=== PATIENT | female | born 1995 | race Caucasian/White ===

== ENCOUNTER 2020-11-21 13:36 | Outpatient (CLI) | payer BC ==
[2020-11-22 03:55] LABS: SARS-CoV-2 PCR by NAA Not Detected (NotDetected)
== END 2020-11-21 13:37 | disposition home or self-care (01) ==
LOC: CSHLAB 13:36
PROVIDERS: ATTEND Obstetrics & Gynecology
DX: Z20.822 Contact with and (suspected) exposure to COVID-19 (principal)
CPT/HCPCS: 87635; U0003; U0005

== ENCOUNTER 2020-11-26 06:00 | Inpatient (IN) | payer BC, OTHER ==
[2020-11-26] MEDS ORDERED: Ondansetron PF 4 MG/2 ML Vial IVP PRN (06:08)
[2020-11-26] MEDS ORDERED: hydrALAZINE 20 MG/ML VIAL SLOW IVP PRN ×2 (06:08→12:37)
[2020-11-26] MEDS ORDERED: Lidocaine 1% (PF) 30 ML VIAL SC PRN (06:08)
[2020-11-26] MEDS ORDERED: Misoprostol 200 MCG TAB PR PRN (06:08)
[2020-11-26] MEDS ORDERED: Promethazine HCl 25 MG/ML VIAL IM PRN (06:08)
[2020-11-26] MEDS ORDERED: Carboprost 250 MCG/ML AMP IM PRN (06:08)
[2020-11-26] MEDS ORDERED: Ibuprofen 800 MG TAB PO PRN (06:08)
[2020-11-26] MEDS ORDERED: Butorphanol Tartrate 1 MG/ML VIAL SLOW IVP PRN (06:08)
[2020-11-26] MEDS ORDERED: HYDROcodone/Acetaminophen 5/325 mg Tablet PO PRN (06:08)
[2020-11-26] MEDS ORDERED: Diphenoxylate HCl/Atropine Tablet PO PRN (06:08)
[2020-11-26] MEDS ORDERED: Acetaminophen 500 MG TAB PO PRN (06:08)
[2020-11-26 06:30] VITALS: BMI 25.0
[2020-11-26] MEDS ORDERED: NS w/ Oxytocin 30 units 500 ML IVPB PRN (06:39)
[2020-11-26] MEDS: Lactated Ringer's 1,000 ML IV SCH (07:00)
[2020-11-26] MEDS: NS w/ Oxytocin 30 units 500 ML IVPB SCH ×2 (07:04→14:32)
[2020-11-26 07:28] LABS: Hemoglobin 10.4 g/dL (12.0-15.5); Mean Corpuscular HGB CONC 32.3 g/dL (32.0-36.0); Mean Corpuscular Hemoglobin 26.5 pg (27.0-33.0); Mean Corpuscular Volume 81.9 fl (81.6-98.3); Mean Platelet Volume 11.4 fl (7.4-10.4); Platelet Count 218 10x3/uL (150-450); RBC Distribution Width 14.4 % (11.5-14.5); Red Blood Cell (RBC) Count 3.93 10x6/uL (3.90-5.03); White Blood Cell (WBC) Count 7.7 10x3/uL (3.5-10.5)
[2020-11-26] MEDS ORDERED: Fentanyl 4 mcg/Bup 0.1% Cadd 100 ML ONE (07:56)
[2020-11-26 08:14] LABS: Hep B Surf Ag Non-Reactive S/CO (NonReactive); Syphilis Antibody Nonreactive (Nonreactive); Syphilis Antibody Index 0.03 S/CO (<1.00 Non-Reactive)
[2020-11-26 08:18] LABS: HBSAg Index 0.19 S/CO (0-0.99)
[2020-11-26] MEDS: ePHEDrine Sulfate 50 MG/10 ML VIAL ONE ×2 (08:42→08:56)
[2020-11-26] MEDS ORDERED: PHENYLEPHRINE-NS 100 MCG/ML 10 ML SYRINGE ONE (08:57)
[2020-11-26] MEDS ORDERED: Dexmedetomidine 200 MCG/2 ML VIAL ONE (10:32)
[2020-11-26] MEDS ORDERED: Milk Of Magnesia 30 ML UDCUP PO PRN (12:37)
[2020-11-26] MEDS ORDERED: Preparation H Ointment 28 GM TUBE PR PRN (12:37)
[2020-11-26] MEDS ORDERED: Benzocaine-Menthol 82.5 ML CAN TOP PRN (12:37)
[2020-11-26] MEDS ORDERED: Adacel (T-DAP) 0.5 ML SYRINGE IM ONE (12:37)
[2020-11-26] MEDS ORDERED: Bisacodyl 10 MG SUPP PR PRN (12:37)
[2020-11-26] MEDS ORDERED: NS / Oxytocin 40 units/1000ml 1,000 ML IV SCH (12:45)
[2020-11-26] MEDS ORDERED: Phytonadione Neonatal 1 MG/0.5 ML AMP ONE (13:42)
[2020-11-26] MEDS ORDERED: Erythromycin Base 0.5% Oint 1 GM TUBE ONE (13:42)
[2020-11-26] MEDS: Ibuprofen 800 MG TAB PO SCH ×2 (15:26→21:02)
[2020-11-26] MEDS: Ferrous Sulfate 325 MG TAB PO SCH (15:27)
[2020-11-26] MEDS: traMADol HCl 50 MG TAB PO PRN ×2 (17:39→22:55)
[2020-11-26] MEDS: Docusate Calcium (SURFAK) 240 MG CAP PO SCH (21:02)
[2020-11-27] MEDS: traMADol HCl 50 MG TAB PO PRN ×3 (04:12→19:34)
[2020-11-27] MEDS: Ibuprofen 800 MG TAB PO SCH ×4 (06:35→22:11)
[2020-11-27] MEDS: Ferrous Sulfate 325 MG TAB PO SCH ×2 (08:29→13:59)
[2020-11-27] MEDS: Prenatal Vitamin 1 TAB PO SCH (08:33)
[2020-11-27] MEDS: Docusate Calcium (SURFAK) 240 MG CAP PO SCH ×2 (08:33→22:10)
[2020-11-27] MEDS: Lactated Ringer's 1,000 ML IV SCH (21:03)
[2020-11-28] MEDS: traMADol HCl 50 MG TAB PO PRN ×2 (02:04→09:17)
[2020-11-28] MEDS: Ibuprofen 800 MG TAB PO SCH ×2 (05:15→13:59)
[2020-11-28 08:11] VITALS: BP 103/61; TEMP 98.1
[2020-11-28] MEDS: Ferrous Sulfate 325 MG TAB PO SCH (08:20)
[2020-11-28] MEDS: Prenatal Vitamin 1 TAB PO SCH (08:53)
[2020-11-28] MEDS: Docusate Calcium (SURFAK) 240 MG CAP PO SCH (08:53)
== END 2020-11-28 17:30 | disposition home or self-care (01) | DRG 807 ==
LOC: CSHLD 06:05 → CSHPP 15:21
PROVIDERS: ADMIT Obstetrics & Gynecology; ATTEND Obstetrics & Gynecology
PROC: 10E0XZZ Delivery of Products of Conception, External Approach (ICD-10-PCS; principal; 2020-11-27)
PROC: 0KQM0ZZ Repair Perineum Muscle, Open Approach (ICD-10-PCS; 2020-11-27)
PROC: 10907ZC Drainage of Amniotic Fluid, Therapeutic from Products of Conception, Via Natural or Artificial Opening (ICD-10-PCS; 2020-11-27)
DX: O70.1 Second degree perineal laceration during delivery (principal); Z37.0 Single live birth; Z20.822 Contact with and (suspected) exposure to COVID-19; Z3A.39 39 weeks gestation of pregnancy
CPT/HCPCS: 36415; 51702; 85027; 86780; 86850; 86900; 86901; 87340; J2405; J2590

== ENCOUNTER 2022-09-15 22:41 | Inpatient (IN) | payer BC, MEDICAID, OTHER ==
[~2022-09-15 22:41] MED LIST: Bupivacaine HCl 0.5%/Epinephrine 1:200,000/PF 30 ml Vial ONE
[2022-09-15 23:09] VITALS: BMI 25.6
[2022-09-15] MEDS ORDERED: Lidocaine 1% (PF) 30 ML VIAL SC PRN (23:33)
[2022-09-15] MEDS ORDERED: Ondansetron PF 4 MG/2 ML Vial IVP PRN (23:33)
[2022-09-15] MEDS ORDERED: hydrALAZINE 20 MG/ML VIAL SLOW IVP PRN (23:33)
[2022-09-15] MEDS ORDERED: Acetaminophen 500 MG TAB PO PRN (23:33)
[2022-09-15] MEDS ORDERED: Misoprostol 200 MCG TAB PR PRN (23:33)
[2022-09-15] MEDS ORDERED: Methylergonovine 0.2 MG/ML VIAL IM PRN (23:33)
[2022-09-15] MEDS ORDERED: Carboprost 250 MCG/ML AMP IM PRN (23:33)
[2022-09-15] MEDS ORDERED: Diphenoxylate HCl/Atropine Tablet PO PRN (23:33)
[2022-09-15] MEDS ORDERED: Butorphanol Tartrate 1 MG/ML VIAL SLOW IVP PRN (23:33)
[2022-09-15] MEDS ORDERED: Promethazine HCl 25 MG/ML VIAL IM PRN (23:33)
[2022-09-15] MEDS ORDERED: Lactated Ringer's 1,000 ML IV SCH (23:45)
[2022-09-15] MEDS ORDERED: NS w/ Oxytocin 30 units 500 ML IV SCH ×2 (23:45)
[2022-09-16 00:51] LABS: Hemoglobin 10.5 g/dL (12.0-15.5); Mean Corpuscular HGB CONC 33.1 g/dL (32.0-36.0); Mean Corpuscular Hemoglobin 27.6 pg (27.0-33.0); Mean Corpuscular Volume 83.2 fl (81.6-98.3); Platelet Count 249 10x3/uL (150-450); RBC Distribution Width 13.3 % (11.5-14.5); Red Blood Cell (RBC) Count 3.81 10x6/uL (3.90-5.03); White Blood Cell (WBC) Count 10.4 10x3/uL (3.5-10.5)
[2022-09-16] MEDS ORDERED: Fentanyl 100 MCG/2 ML VIAL ONE (00:57)
[2022-09-16] MEDS ORDERED: Fentanyl 2 mcg/Bup 0.1% Cadd 100 ML ONE (00:58)
[2022-09-16 01:13] LABS: SARS-CoV-2 NAA Rapid Test Not Detected (NotDetected)
[2022-09-16 01:14] LABS: HBSAg Index 0.12 S/CO (0-0.99); Hep B Surf Ag Non-Reactive S/CO (NonReactive)
[2022-09-16 01:15] LABS: Syphilis Antibody Nonreactive (Nonreactive); Syphilis Antibody Index 0.03 S/CO (<1.00 Non-Reactive)
[2022-09-16] MEDS ORDERED: Promethazine HCl 25 MG/ML VIAL IM PRN (01:40)
[2022-09-16] MEDS ORDERED: diphenhydrAMINE 50 MG/ML VIAL IVP PRN (01:40)
[2022-09-16] MEDS ORDERED: Acetaminophen 325 MG TAB PO PRN (01:40)
[2022-09-16] MEDS ORDERED: Ondansetron PF 4 MG/2 ML Vial IVP PRN (01:40)
[2022-09-16] MEDS ORDERED: Lactated Ringer's 500 ML IV PRN (01:40)
[2022-09-16] MEDS ORDERED: Naloxone HCl 0.4 mg/ml Vial IVP PRN ×2 (01:40)
[2022-09-16] MEDS ORDERED: Moisturizing Cream (Eucerin) 113 GM JAR TOP PRN (01:40)
[2022-09-16] MEDS ORDERED: ePHEDrine Sulfate 50 MG/10 ML VIAL SLOW IVP PRN (01:40)
[2022-09-16] MEDS ORDERED: Fentanyl 2 mcg/Bupivacaine 0.1% Cassette 100 ML EPIDURAL SCH (01:45)
[2022-09-16] MEDS ORDERED: Communication Order-Pharmacy FS SCH (01:45)
[2022-09-16] MEDS ORDERED: hydrALAZINE 20 MG/ML VIAL SLOW IVP PRN (04:33)
[2022-09-16] MEDS ORDERED: Benzocaine-Menthol 82.5 ML CAN TOP PRN (04:33)
[2022-09-16] MEDS ORDERED: Milk Of Magnesia 30 ML UDCUP PO PRN (04:33)
[2022-09-16] MEDS ORDERED: Preparation H Ointment 28 GM TUBE PR PRN (04:33)
[2022-09-16] MEDS ORDERED: diphenhydrAMINE 25 MG CAP PO PRN (04:33)
[2022-09-16] MEDS ORDERED: Bisacodyl 10 MG SUPP PR PRN (04:33)
[2022-09-16] MEDS ORDERED: Boostrix 0.5 ML (Tdap) VIAL (>/=7 yrs of age) IM ONE (04:33)
[2022-09-16] MEDS: Ferrous Sulfate 325 MG TAB PO SCH ×2 (10:20→17:49)
[2022-09-16] MEDS: Docusate 100 MG CAP PO SCH ×2 (10:20→21:20)
[2022-09-16] MEDS: Prenatal Vitamin 1 TAB PO SCH (10:20)
[2022-09-16] MEDS: Ibuprofen 800 MG TAB PO SCH ×3 (13:50→21:20)
[2022-09-17] MEDS ORDERED: traMADol HCl 50 MG TAB PO PRN (01:40)
[2022-09-17] MEDS: Ibuprofen 800 MG TAB PO SCH (05:33)
[2022-09-17] MEDS: Ferrous Sulfate 325 MG TAB PO SCH (07:36)
[2022-09-17 07:53] VITALS: BP 99/57; TEMP 97.8
[2022-09-17] MEDS: Prenatal Vitamin 1 TAB PO SCH (08:30)
[2022-09-17] MEDS: Docusate 100 MG CAP PO SCH (08:30)
== END 2022-09-17 12:55 | disposition home or self-care (01) | DRG 807 ==
LOC: CSHLD/OP 22:41 → CSHLD 23:33 → CSHPP 09-16 12:10
PROVIDERS: ADMIT Obstetrics & Gynecology; ATTEND Obstetrics & Gynecology
PROC: 10E0XZZ Delivery of Products of Conception, External Approach (ICD-10-PCS; principal; 2022-09-16)
PROC: 0UQMXZZ Repair Vulva, External Approach (ICD-10-PCS; 2022-09-16)
DX: O71.82 Other specified trauma to perineum and vulva (principal); Z37.0 Single live birth; Z3A.40 40 weeks gestation of pregnancy; Z20.822 Contact with and (suspected) exposure to COVID-19
CPT/HCPCS: 36415; 51702; 85027; 86780; 86850; 86900; 86901; 87340; 99285; U0002